=== PATIENT | male | born 1985 | race African-American/Black ===

== ENCOUNTER → 2016-11-04 | Outpatient (CLI) | payer OTHER ==
--- NOTE | 2016-11-04 11:02 | RAD ---
Indication: Abdominal pain. The liver is normal in size. The liver demonstrates homogeneous echotexture. No discrete mass is detected. The gallbladder is without stones or sludge. No wall thickening or pericholecystic fluid is identified. No ductal dilatation is seen. The pancreas was poorly visualized. The spleen is unremarkable. The kidneys are unremarkable. The aorta and IVC are unremarkable. No ascites is seen. Impression: Unremarkable abdominal ultrasound.
== END | disposition home or self-care (01) ==
LOC: US 09:32
PROVIDERS: ATTEND Family Medicine
DX: R10.9 Unspecified abdominal pain (principal)
CPT/HCPCS: 76700

== ENCOUNTER → 2019-09-26 | Outpatient (CLI) | payer OTHER ==
--- NOTE | 2019-09-26 15:27 | RAD ---
3 view study of the lumbar spine Clinical indications: Back pain. FINDINGS: The transverse processes are intact. No compression fracture lower discitis or lytic process or anterolisthesis is evident. No significant degenerative disc space narrowing or endplate spurring is seen. IMPRESSION: No significant osseous abnormality. Electronically signed by: Jamie Chow MD (09/26/2019 3:24 PM) [facility]
== END | disposition home or self-care (01) ==
LOC: RAD 11:32
PROVIDERS: ATTEND Nurse Practitioner Gerontology
DX: M54.5 Low back pain (principal)
CPT/HCPCS: 72100